=== PATIENT | female | born 1985 | race African-American/Black ===

== ENCOUNTER 2016-05-21 13:07 | Emergency (ER) | payer OTHER ==
--- NOTE | ~2016-05-21 | EKG ---
PATIENT: LOUIS GOMEZ UNIT #: [id number] Ventricular Rate: 44 BPM Atrial Rate: 44 BPM P-R Interval: 144 ms QRS Duration: 86 ms Q-T Interval: 478 ms QTC Calculation(Bezet): 408 ms P [place]: 59 degrees Calculated R [place]: 61 degrees Calculated T [place]: 50 degrees Diagnosis Line: Marked sinus bradycardia Diagnosis Line: Abnormal ECG Diagnosis Line: No previous ECGs available Diagnosis Line: Confirmed by CARO SAUCEDA MD ([id number]) on Diagnosis Line: 05/22/2016 2:23:00 PM INTERPRETING MD: SOHAIL CUMMINGS
--- NOTE | ~2016-05-21 | CT2 ---
[facility] A Service of [facility] RADIOLOGY TEXT RESULTS PATIENT: LOUIS GOMEZ LOCATION: [facility] : 81 UNIT #: [id number] AGE: [address]: Seb Cohen DO SEX: F ORDER DR: [id number] [facility] [address] [place], [place] [address] [id number] MR#: [id number] Acc #: [id number] NAME: LOUIS GOMEZ : 1985 SEX: F STUDY DATE/TIME: 05/21/2016 16:43 UNIT: NATHANIEL ROOM: STUDY DESCRIPTION: CT Abd and Pelv W Cont Attending Physician: Seb Cohen D.O. Ordering Physician: Seb Cohen D.O. Primary Care Physician: No Primary Care Physician MEDICAL IMAGING REPORT This report is preliminary unless electronic signature is present EXAM CT abdomen and pelvis 05/21/2016 HISTORY Abdomen pain, nausea, vomiting diarrhea times this a.m. Took powder for opiate cravings. TECHNIQUE CT abdomen and pelvis performed with intravenous administration of 100 mL Isovue-370. This CT exam was performed with one or more of the following radiation dose reduction techniques: Automatic exposure control, adjustment of mA and/or kV according to patient size, and iterative reconstruction. COMPARISON No prior CTs of abdomen or pelvis for comparison. FINDINGS The lung bases are clear. Inferior heart and pericardium unremarkable. Liver, gallbladder, spleen, pancreas, adrenal glands unremarkable. Kidneys unremarkable. CT pelvis: No inguinal adenopathy. Urinary bladder unremarkable. Uterus normal. Small amount of free fluid in the pelvis slightly more pronounced on right than left. Likely physiologic in nature. No peripheral enhancement to suggest abscess. Exact etiology is unclear. No pelvic or retroperitoneal adenopathy. The distal esophagus, stomach, small bowel and appendix are unremarkable. Colon unremarkable. The vascular structures appear within normal limits. Bony structures show no acute bony abnormality. Small posterior disc bulges L4-L5, L5-S1. IMPRESSION [facility] A Service of [facility] RADIOLOGY TEXT RESULTS PATIENT: LOUIS GOMEZ LOCATION: [facility] : 81 UNIT #: [id number] AGE: [address]: Seb Cohen DO SEX: F ORDER DR: 1. There is a small amount of free fluid in the pelvis slightly more pronounced on right than left. It is of uniform low density with no enhancement characteristics to suggest abscess. Exact etiology unclear. Probably physiologic in nature and related to the patient's menstrual cycle. Pelvis otherwise unremarkable. 2. Gallbladder, kidneys, appendix normal. 3. Remainder of alimentary canal unremarkable. 4. Small posterior disc bulges L4-L5, L5-S1. If it would assist in management, lumbar spine could be further assessed with elective MRI if the patient is a candidate. See remainder of incidental findings in body of report above. Dictated by... Selwyn Harris M.D. THIS IS AN ELECTRONICALLY VERIFIED REPORT Selwyn Harris M.D. at 05/22/2016 2:17 PM RICO/eve TD: 05/22/2016 08:46 JOB #: [id number] MEDICAL IMAGING REPORT Page 1 of 1 COPY
[~2016-05-21 13:07] MED LIST: CIPRO PO; DIFLUCAN PO; FLEXERIL10 M1; FLEXERIL10 M1 PO; IBUPROFEN800 MG PO; MACROBID100 MG PO; NEXIUM PO; NO MEDICATIONS; PRENATAL1 TA1 PO; PYRIDIUM PO; PYRIDIUM100 MG PO; ULTRAM PO; VOLTAREN75 MG; VOLTAREN75 MG PO; ZOFRAN ODT4 MG SL
[2016-05-21 13:54] LABS: BASOPHIL% 0.4 % (0-2.5); EOSINOPHIL# 0.2 X10e3 (0-0.7); EOSINOPHIL% 1.2 % (0.0-7.0); HEMATOCRIT 41.4 % (35.0-45.0); HEMOGLOBIN 13.7 gm/dL (12.0-16.0); LYMPHOCYTE# 1.4 X10e3 (1.0-3.5); LYMPHOCYTE% 11.4 % (17.0-45.0); MEAN CELL VOLUME 87.8 FL (83-96); MEAN CORPUSCULAR HEMOGLOBIN 29.2 PG (28-34); MEAN CORPUSCULAR HGB CONC 33.2 g/dL (30-36); MEAN PLATELET VOLUME 9.9 FL (6.5-11.5); MONOCYTE# 0.6 X10e3 (0-1.0); MONOCYTE% 5.2 % (3.0-12.0); NEUTROPHIL# 10.2 X10e3 (1.5-7.1); NEUTROPHIL% 81.8 % (40-75); PLATELET COUNT 136 X10e3 (140-420); RED BLOOD COUNT 4.71 X10e (3.90-5.30); RED CELL DISTRIBUTION WIDTH 12.3 % (11.0-15.5); WHITE BLOOD COUNT 12.4 X10e3 (4.0-10.5)
[2016-05-21 13:57] LABS: DIFF IND NO
[2016-05-21 14:21] LABS: ALKALINE PHOSPHATASE 72 U/L (32-92); ALT (SGPT) 11 U/L (10-40); AST (SGOT) 18 U/L (10-42); BILIRUBIN, DIRECT 0.1 mg/dL (0.0-0.2); BILIRUBIN,INDIRECT 0.7 mg/dL (0.0-0.9); BILIRUBIN,TOTAL 0.8 mg/dL (0.2-2.0); BLOOD UREA NITROGEN 10 mg/dL (9-23); CALCIUM SERUM 8.6 mg/dL (8.4-10.2); CARBON DIOXIDE 24 mmol/L (22-31); CHLORIDE 105 mmol/L (100-111); CREATININE SERUM 0.8 mg/dL (0.6-1.4); GLOM FILT RATE Estimated ABOVE60 mL/min (>60); GLUCOSE FASTING 82 mg/dL (70-110); LIPASE 19 U/L (22-51); POTASSIUM 3.4 mmol/L (3.5-5.1); PROTEIN TOTAL SERUM 7.2 g/dL (6.0-8.3); SALICYLATE <4.0 mg/dL; SODIUM 137 mmol/L (135-145)
[2016-05-21 14:22] LABS: ACETAMINOPHEN <10 ug/mL; ALCOHOL BLOOD <5 mg/dL (0)
[2016-05-21 15:30] LABS: POC - CKMB <1.0 ng/mL (0.0-7.9); POC - TROPONIN <0.05 ng/mL (<=0.05)
[2016-05-21 15:31] LABS: POC - CKMB <1.0 ng/mL (0.0-7.9); POC - TROPONIN <0.05 ng/mL (<=0.05)
[2016-05-21 16:14] LABS: URINE SOURCE CLEAN CATCH
[2016-05-21 16:19] LABS: URINE APPEARANCE CLEAR; URINE BLOOD NEG (NEG); URINE COLOR DK YELLOW; URINE GLUCOSE NEG (NEG); URINE KETONE NEG (NEG); URINE LEUKOCYTE ESTERASE TRACE (NEG); URINE NITRATE NEG (NEG); URINE PROTEIN NEG (NEG); URINE SPECIFIC GRAVITY 1.021 (1.003-1.035)
[2016-05-21 16:22] LABS: U HYALINE CASTS AUWI 0-2 /[LPF]; URBCS1 AUWI 0-2 /[HPF] (0-2); URINE BACTERIA AUWI NEG (NEGATIVE); URINE SQUAMOUS EPITHELIAL CELL NONE SEEN /[HPF]; UWBCS1 AUWI 0-2 (0-5)
[2016-05-21 16:29] LABS: AMPHETAMINE NEG (NEG); BARBITURATES NEG (NEG); BENZODIAZEPINES NEG (NEG); COCAINE POS (NEG); MARIJUANA NEG (NEG); OPIATES POS (NEG); TRICYCLIC ANTIDEPRESSANTS NEG (NEG); U METHADONE NEG (NEG)
[2016-05-21 16:35] LABS: CULTURE INDICATED? NO
[2016-05-21 16:36] LABS: URINE BILIRUBIN NEG (NEG)
== END 2016-05-21 19:58 | disposition home or self-care (01) ==
LOC: CED 13:07
PROVIDERS: Emergency Medicine
DX: R10.9 Unspecified abdominal pain (principal); F11.10 Opioid abuse, uncomplicated; F14.10 Cocaine abuse, uncomplicated; F17.210 Nicotine dependence, cigarettes, uncomplicated; Z88.6 Allergy status to analgesic agent
CPT/HCPCS: 36415; 51701; 74177; 80048; 80076; 80307; 81003; 82553; 83690; 83735; 84484; 84703; 85025; 93005; 99284; G0480; Q9967